=== PATIENT | male | born 1950 | race Caucasian/White ===

== ENCOUNTER 2016-07-02 03:42 | Observation (INO) | payer MEDICARE, OTHER ==
[~2016-07-02] VITALS: Ht 182.9 cm; Wt 111.4 kg
--- NOTE | ~2016-07-02 | ER ---
PATIENT'S NAME: MEGAN JOHNSON [facility] AGE: 65 Y [address] ROOM: [facility] [place] [place], [place] [address] LOCATION: GPCU ADMIT DATE: 07/02/2016 ER/Outpatient Report DISCHARGE DATE: FAMILY PHYSICIAN: Dakotah Alamo MD ATTENDING PHYSICIAN: Nacho Su Time of Arrival: 0342 hours. Time Seen: 0351 hours. IDENTIFICATION: A 65-year-old male. CHIEF COMPLAINT: Shortness of breath. HISTORY OF PRESENT ILLNESS: The patient is a 65-year-old male who had surgery on his foot by the environmental aid in [place] one week ago. He then had an infection and was placed on Bactrim last Monday, had a rash and allergic reaction secondary to that, went back to the hospital, got readmitted on Monday with shortness of breath and rash. Received Rocephin and Levaquin IV as well as IV Solu- Medrol and was discharged on Monday with a Medrol Dosepak which he has only taken a few tablets out of that. He was receiving Lovenox injections while in the hospital but was very sedentary during that time. Tonight, he woke up with chills, shortness of breath, bloated, and weakness. No chest pain. No history of cardiac problems other than he said he had an enlarged heart when he was younger. He states he did have an echo a few years ago with Dr. Hoover. ALLERGIES: TO BACTRIM AND PENICILLIN. CURRENT MEDICATIONS: 1. Cefdinir 300 mg b.i.d., filled but not started yet. 2. Fluconazole 100 mg daily, filled but not started yet, but he also did receive that in the hospital. 3. Medrol Dosepak. 4. Metformin 1000 mg b.i.d. 5. Meloxicam 15 mg daily. 6. Rabeprazole 20 mg daily. 7. Valsartan/hydrochlorothiazide 80/12.5 daily. 8. Levothyroxine 50 mcg daily. 9. Docusate 100 mg b.i.d.. 10. In the hospital, he also received Rocephin, Lovenox, Solu-Medrol, and Levaquin. PATIENT'S NAME: MEGAN JOHNSON [facility] AGE: 65 Y [address] ROOM: [address] [place], [place] [address] [facility] ADMIT DATE: 07/02/2016 ER/Outpatient Report DISCHARGE DATE: FAMILY PHYSICIAN: Dakotah Alamo MD ATTENDING PHYSICIAN: Nacho Su MEDICAL PROBLEMS: Diabetes mellitus, hypertension, hyperlipidemia, acute kidney injury, gout. PRIOR SURGERIES: Right foot surgery. SOCIAL HISTORY: The patient is . Lives in [place], is a self-employed hayden. Tobacco use, he chews tobacco. Alcohol use, rare. Drug use, denies. REVIEW OF SYSTEMS: All systems reviewed and negative other than what is noted in the HPI. PHYSICAL EXAMINATION: VITAL SIGNS: Height 6 feet 0 inches, weight 112.6 kilograms, blood pressure 162/83, pulse 84, respirations 20, temp 100, sats 96% on room air. GENERAL: A 65-year-old male in no acute distress. HEENT: Head; normocephalic, atraumatic. Ears; TMs translucent, both ears. Eyes; pupils equal and reactive to light and accommodation. Extraocular movements intact. Nose, mucosa pink. No lesions or drainage. Mouth, no lesions. Pharynx benign. NECK: Supple. No lymphadenopathy. LUNGS: Clear to auscultation. Breath sounds are equal. HEART: Regular rate and rhythm. No murmur, rub, or gallop. ABDOMEN: Bowel sounds present. Soft, nondistended. No hepatosplenomegaly. No palpable masses. Nontender. SKIN: Diffuse erythematous rash which he says is improving. Incision over his right great toe dehisced, but no surrounding erythema or drainage. EXTREMITIES: No calf tenderness. Negative Homans. NEUROLOGIC: The patient is alert and oriented x4. Cranial nerves 2 through 12 grossly intact. Motor strength 5/5 throughout. Sensation is intact to light touch. LABORATORY DATA AND X-RAYS: EKG; sinus rhythm at 75 beats per minute, no acute ST elevation or depression, nonspecific ST-T wave changes. Hemoglobin 12.2, hematocrit 36.2, platelets 179. White count 12.4, 83% segs, 3% bands. INR 1.02. Sodium 139, potassium 4.5, chloride 111, CO2 of 17, BUN 27, creatinine 1.8, blood sugar 138, creatinine was 3.1 on 06/30/2016. Liver enzymes elevated; AST 64, ALT 111. Procalcitonin 0.16. Lactate 2.0. D-dimer 1.32. V/Q scan has been ordered but unable to be performed until later this morning. ProBNP elevated at 5592. Some records were obtained from [facility] and those have been reviewed to include medications that were received in the hospital and labs that were reported on 06/30/2016. PATIENT'S NAME: MEGAN JOHNSON [facility] AGE: 65 Y [address] ROOM: [place] [address] LOCATION: GPCU ADMIT DATE: 07/02/2016 ER/Outpatient Report DISCHARGE DATE: FAMILY PHYSICIAN: Dakotah Alamo MD ATTENDING PHYSICIAN: Nacho Su IMPRESSION AND PLAN: 1. Shortness of breath and elevated D-dimer. Plan for heparin per acute DVT/PE protocol and admission per Dr. Su for Dr. Alamo. The patient has a V/Q scan ordered for later today. 2. Wound dehiscence, status post toe surgery. 3. Elevated proBNP. The patient had an echo in 2005 showing hypertrophic cardiomyopathy, systolic function was normal at that time, impairment of LV relaxation. The patient had a stress test that was abnormal in 2012 followed by a heart catheterization which was a false positive test, mild irregularities. 4. Hypertension. 5. Hyperlipidemia. 6. Diabetes. 7. Chewing tobacco abuse. Admit to PCU observation per Dr. Su. CLEO AVILES MD CAR/modl /[id number] d: 07/02/16638 t: 07/02/161911, OUTPATIENT REPORT
--- NOTE | ~2016-07-02 | CON ---
PATIENT'S NAME: MEGAN JOHNSON [facility] AGE: 65 Y [address] ROOM: [address] [place], [place] [address] LOCATION: GPCU ADMIT DATE: 07/02/2016 Consultation DISCHARGE DATE: FAMILY PHYSICIAN: Dakotah Alamo MD ATTENDING PHYSICIAN: Nacho Su REFERRING PHYSICIAN: Maricruz Shine MD Patient of Dr. Alamo. Dear Dr. Alamo: Thank you for asking me to see Mr. Johnson, who is a 65-year-old male patient admitted from [place] with shortness of breath. His proBNP was elevated at 5000 or greater, and I am being asked in consultation. He seemed to have ruled out for IN. His echo has been done and has not been read yet. We will try to get some sort of a stress test tomorrow for him. The patient had a similar episode about a year ago and for one month, he had lot of bloating in his upper abdomen along with swelling with bloating pushing on his heart making him short of breath and spontaneously resolved after a month. Now, he is short of breath and also somewhat off balance without any chest pain. He underwent tophus surgery 16 days ago and it got infected. Nine days back, he was placed on Bactrim which caused hives, shortness of breath, and his BP was somewhat low. He was hospitalized, and his proBNP was known to be elevated. He is here for followup of the elevated BNP and his heart failure. He has been in functional class II with no paroxysmal nocturnal dyspnea or orthopnea. He has been lightheaded for 3 days and today it has been much better. There is no history of palpitations or ankle swelling. MEDICATIONS: 1. Omnicef 300 mg every 12 hours. 2. Fluconazole 100 mg daily. 3. Methylprednisone 4 mg one dose as directed. 4. AcipHex 20 mg once a day. 5. Hydrocodone acetaminophen 1-2 every 4 hours p.r.n. 6. Meloxicam 15 mg a day. 7. Levothyroxine 50 mcg a day. 8. Docusate sodium. 9. [place]-3. 10. Aspirin 81 mg once a day. 11. Simvastatin 40 mg a day. 12. Valsartan hydrochlorothiazide 1 tablet every day. ALLERGIES: SULFAMETHOXAZOLE, TRIMETHOPRIM, CODEINE, GLUTEN, AND WHEAT. PATIENT'S NAME: MEGAN JOHNSON [facility] AGE: 65 Y [address] ROOM: [place] [address] LOCATION: GPCU ADMIT DATE: 07/02/2016 Consultation DISCHARGE DATE: FAMILY PHYSICIAN: Dakotah Alamo MD ATTENDING PHYSICIAN: Nacho Su PAST MEDICAL HISTORY: 1. Left foot surgery. 2. History of teeth extraction. SOCIAL HISTORY: The patient is a retired hayden. He is . He denies abusing alcohol, recreation is mild. His appetite is down by 7 days. His weight is down. Sleep is poor. FAMILY HISTORY: Father had IN at the age of 50 and also enlarged heart in 1970. REVIEW OF SYSTEMS: 12-point review of systems reveals: 1. Headaches. 2. Left-sided neck pain. 3. Corrective lenses. 4. Hypothyroidism. 5. Hiatal hernia. 6. Weak kidneys. 7. DJD. 8. Depression. 9. CKD. PHYSICAL EXAMINATION: VITAL SIGNS: On examination, his blood pressure is 130/80, heart rate is in the 80s and regular, respiration is 18, afebrile. HEENT: Normal. NECK: Supple. There is no JVD thyromegaly, lymphadenopathy, or carotid bruit. HEART: PMI is not well located. First and second heart sounds are regular. He does have a grade 4 systolic murmur best heard in the right upper sternal edge. ASSESSMENT: The patient has history of: 1. Type 2 diabetes and elevated cholesterol along with history of smoking at the age of 17. 2. Family history of premature coronary artery disease. 3. Shortness of breath and elevated proBNP. PLAN: His echo has been done. I will evaluate his echo and if that is negative, we will try to do a dobutamine echocardiogram in the morning. PATIENT'S NAME: MEGAN JOHNSON [facility] AGE: 65 Y [address] ROOM: [place] [address] LOCATION: GPCU ADMIT DATE: 07/02/2016 Consultation DISCHARGE DATE: FAMILY PHYSICIAN: Dakotah Alamo MD ATTENDING PHYSICIAN: Nacho Su Again, I appreciate this opportunity to participate in the care of Mr. Johnson. MD MARTINEZ CORONA/bertha /[id number] d: 07/02/16 2333 t: 07/05/16 1453, CONSULTATION REPORT
--- NOTE | ~2016-07-02 | ECHO ---
Stress Echocardiography Report Demographics Patient Name MEGAN JOHNSON Date of Study 07/03/2016 Patient Number [id number] Visit Number [id number] Date of 1950 Room Number G6335 Accession Number [id number] Gender Male Age 65 year(s) Referring Fátima Alcantara Psychiatric Tech Camila Doan RVT, Physician MD ARVIZUCS Physician Interpreting [facility] Director Physician Fátima Alcantara MD Supervising Fátima Alcantara Ordering Fátima FRANCO/LILLI FRANCO Physician Maricruz FRANCO Nurse Tyshawn Cartagena RN Stress Wet Sander The procedure was explained in detail to the patient. Risks, complications and alternative treatments were reviewed. Written consent was obtained. Medications Reviewed with Patient prior to Procedure. Conclusions Summary This is a Dobutamine Echo. Patient reached 92% MPHR without atropine. BP came down with Dobutamine. DP:23 K. No chest pain. Noted palpitation. No EKG changes of ischemia. One three beat run of PVCs. ECHO: No inducible ischemia. LV cavity did decrease in dimension with dobutamine appropriately. Procedure Type of Study Stress procedure:Pharm Stress Echo w/o Contrast. Procedure Date Date: 07/03/2016 Start: 12:00 AM Study Location: Echo Lab Technical Quality: Good visualization Indications:Shortness of breath. Appropriate Use Criteria: 8 Patient Status: Routine Rhythm: NSR HR: 60 bpm BP: 187/90 mmHg Allergies - Other:(codeine, captopril, gluten, wheat). Risk Factors - The patient's risk factor(s) include: orally-treated diabetes mellitus, treated dyslipidemia, lack of physical activity and treated arterial hypertension. Rest Resting HR:60 bpmResting BP:187/90 mmHg Stress Stress Type: Pharmacologic Predicted HR: 155 bpm Contractility Score Rest LV regional wall motion:(0-Non visualized 1-Normal 2-Hypokinesis 3-Akinesis 4-Dyskinesis 5-Aneurysm) Signature dtt: Maricruz Shine dtd: 07/03/16 0000 Physician Self Edit
--- NOTE | ~2016-07-02 | ECHO ---
Transthoracic Echocardiography Report (TTE) Demographics Patient Name MEGAN JOHNSON Date of Study 07/02/2016 Patient Number [id number] Visit Number [id number] Date of 1950 Room Number G6335 Gender Male Number Age 65 year(s) Referring Sharlene Reese Director Of Coding Camila Doan RVT, Physician RD Physician Interpreting Fátima Alcantara Electronics Recycler Physician Supervising Ordering Jasmeet Reese MD, MD/MLP Physician Nurse Stress Design Assistant Conclusions Contractility Score Summary Normal Left Ventricular contractility was noted. Summary The estimated left ventricular ejection fraction is 60% with normal WM. Mild to moderate concentric left ventricular hypertrophy with normal internal dimensions. The left atrium is mildly dilated. Trace MR. Mild aortic sclerosis. Procedure Type of Study TTE procedure:2D Echocardiogram. Procedure Date Date: 07/02/2016 Start: 01:42 PM Study Location: Inpatient Portable Technical Quality: Adequate visualization Indications:Shortness of breath. Appropriate Use Criteria: 8 Patient Status: Routine Rhythm: NSR HR: 69 bpm BP: 151/84 mmHg Allergies - Other:(codeine, captopril, gluten, wheat). M-Mode/2D Measurements LV Diastolic Dimension: 4.92 cm LV Systolic Dimension: 3.28 cm LV Septum Diastolic: 1.63 cm LV PW Diastolic: 1.34 cm AO Root Dimension: 2.3 cm Cardiac Output: 7 l/min LA Dimension: 4.1 cm EF Estimated: 60 % LVOT: 2 cm LVOT VTI: 32.3 cm RV Base: 3.17 cm LV Stroke volume: 101.42 ml RV Length: 8.88 cm TAPSE: 3.58 cm TDI-S': 16.7 cm/s Doppler Measurements AV Peak Velocity: 1.42 m/s MV Peak E-Wave: 0.87 m/s AV Peak Gradient: 8.07 mmHg MV Peak A-Wave: 1.08 m/s AV Mean Gradient: 7 mmHg MV E/A Ratio: 0.81 LVOT Peak Velocity: 1.44 m/s MV P1/2t: 72 msec TR Gradient:19.54 mmHg PV Peak Velocity: 1.6 m/s Estimated RAP:5 mmHg PV Peak Gradient: 10.24 mmHg Estimated RVSP: 25 mmHg Estimated PASP: 24.54 mmHg E' Septal Velocity: 0.06 m/s A' Septal Velocity: 0.13 m/s E' Lateral Velocity: 0.1 m/s A' Lateral Velocity: 0.13 m/s Findings Left Ventricle Mild to moderate concentric left ventricular hypertrophy with normal internal dimensions,EF and WM. Right Ventricle Normal right ventricle structure and function. Left Atrium The left atrium is mildly dilated. IAS persistently deviated to the right consistent with increased RA pressures. There is no evidence of patent foramen ovale or atrial septal defect by color Doppler. Right Atrium Normal right atrial size. Mitral Valve Normal mitral valve structure and function. Trivial mitral regurgitation by color Doppler. Aortic Valve The aortic valve is mildly sclerotic. Tricuspid Valve Normal tricuspid valve structure and function. Pulmonic Valve Normal pulmonic valve structure and function. Pericardial Effusion No evidence of pericardial effusion. Miscellaneous Visualized portions of the aortic root and ascending aorta appear normal in size. Pleural Effusion No evidence of pleural effusion. Contractility Score LV regional wall motion:(0-Non visualized 1-Normal 2-Hypokinesis 3-Akinesis 4-Dyskinesis 5-Aneurysm) Signature dtt: Maricruz Shine dtd: 07/02/16 4052 Physician Self Edit
--- NOTE | ~2016-07-02 | HP ---
PATIENT'S NAME: MEGAN JOHNSON [facility] AGE: 65 Y [address] ROOM: [address] [place], [place] [address] LOCATION: GPCU ADMIT DATE: 07/02/2016 History & Physical DISCHARGE DATE: FAMILY PHYSICIAN: Larisa Alamo MD ATTENDING PHYSICIAN: Nacho Su DATE OF SERVICE: CHIEF COMPLAINT: Significant shortness of breath. 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 I saw him for preoperative H and P on 06/13 and he subsequently underwent surgery on 06/15. He ended up getting readmitted to [facility] with dehiscence of that wound with a secondary infection. He apparently had an allergy to Bactrim while he was there, was placed on IV Levaquin and Rocephin and subsequently he was discharged. On Monday of this week, he started getting a little bit of shortness of breath with exertion that got profoundly worse last night to the point where he could only walk about 10 feet without having shortness of breath. He has no prior history of DVT or PE. He has no prior history of heart failure with an EF of 59% on a stress test in 2012. At that time, he did have a positive stress test involving the inferior wall, but his heart catheterization showed nonobstructive coronary artery disease with mild luminal irregularities. He is still currently not hypoxic, but gets dramatically worse with shortness of breath with laying down. PAST MEDICAL HISTORY: Significant for nicotine dependence in the form of chewing tobacco, morbid obesity with a BMI of 38, history of diverticulosis, duodenitis without bleeding in 2009 seen by EGD, history of GERD, hyperlipidemia, hypertensive kidney disease with CKD stage 3, hypertriglyceridemia, hypertrophic cardiomyopathy, hyperthyroidism, osteoarthritis in the knees bilaterally, steatosis of the liver, and type 2 diabetes mellitus. His most recent A1c was decently controlled at 6.7%. CHRONIC MEDICATIONS: 1. Allopurinol 300 mg daily. 2. Aspirin 81 mg once a day. 3. Levothyroxine 50 mcg daily. 4. Meloxicam 50 mg one a day. 5. Metformin 1000 mg b.i.d. 6. Rabeprazole 20 mg once a day. 7. Simvastatin 40 mg once a day. PATIENT'S NAME: MEGAN JOHNSON [facility] AGE: 65 Y [address] ROOM: [address] [place], [place] [address] [facility] ADMIT DATE: 07/02/2016 History & Physical DISCHARGE DATE: FAMILY PHYSICIAN: Larisa Alamo MD ATTENDING PHYSICIAN: Nacho Su 8. Valsartan/hydrochlorothiazide 80/12.5 one a day. ALLERGIES: BACTRIM AND PENICILLIN. PRIOR SURGICAL HISTORY: He had a colonoscopy in 2009, an EGD in 2009, and then his recent foot surgery. SOCIAL HISTORY: He uses alcohol on a light basis. Drinks caffeine every day. He chews tobacco every day. He is and his accompanies him. REVIEW OF SYSTEMS: Denies any chest pain. He does have the shortness of breath as outlined above. He does still have dyspnea on exertion as well. He has no melena, hematochezia, or bright blood per rectum. No dysuria, frequency, or urgency. All other review of systems are negative. Full 12-point review of systems was obtained. PHYSICAL EXAMINATION: GENERAL: The patient is nontoxic appearing male, in no acute distress. HEENT: Normocephalic and atraumatic. Ears: TMs are clear and intact bilaterally. Nose is patent. Throat clear. NECK: Supple without lymphadenopathy, JVD, thyromegaly, or bruits. HEART: Regular rate and rhythm with audible grade 2/6 systolic murmur heard throughout. LUNGS: Clear to auscultation bilaterally without wheezes, rhonchi, or rales. ABDOMEN: Soft, nontender, nondistended. Bowel sounds are positive. There is no hepatosplenomegaly, no guarding, no rebound. EXTREMITIES: He has manifestations of his recent surgery on his left foot. His right, he does have some mild edema, but certainly is not pitting at this point. His Homans sign is negative bilaterally. NEUROLOGICAL: He is focally intact. LABORATORY DATA: His white cell count is 12.4, hemoglobin 12.2, hematocrit 36.2%, platelet count 179,000. Sodium 139, potassium 4.5, chloride 111, CO2 is 17, BUN 27, creatinine 1.8, and glucose 138. This compares to labs, his BUN is 16, creatinine 1.3 with a GFR of 59 going into surgery. His PT is 10.7, INR is 1.02, PTT is 23. His proBNP is elevated at 5592 with no baseline for comparison. His D-dimer is elevated at 1.32 and his procalcitonin level is 0.16. ASSESSMENT AND PLAN: PATIENT'S NAME: MEGAN JOHNSON [facility] AGE: 65 Y [address] ROOM: [id number] [place] [id number] LOCATION: GPCU ADMIT DATE: 07/02/2016 History & Physical DISCHARGE DATE: FAMILY PHYSICIAN: Larisa Alamo MD ATTENDING PHYSICIAN: Nacho Su A 65-year-old white male with the following problem list: 1. New-onset shortness of breath and dyspnea on exertion. Clearly, our biggest thing to worry about here is pulmonary embolism. I really do not want to give him contrast with his history of chronic kidney disease stage 3, with acute on chronic renal failure, so we will go ahead and do a V/Q scan, and make further recommendations pending the outcome of that. Certainly, his elevated BNP may be playing a role in this as well. 2. Elevated BNP without evidence of heart failure. We will get an echo. His last echo showed EF greater than 55% with some LVH and grade 1 diastolic dysfunction. We will see if that significantly changed. We will go ahead and trend out enzymes as well. We will check CPK and troponin during those times as well. He is currently on heparin per protocol. 3. Type 2 diabetes mellitus with an A1c of 6.7%. Continue with his metformin for now. Obviously, he needs to watch his kidney function closely with that. 4. History of hyperlipidemia with his last check. This was well controlled with LDL of 53 with him being on a statin. 5. Nicotine dependence in the form of chewing tobacco. I did offer nicotine replacement, which he will do. He states he will not chew while he is in the hospital. 6. Acute on chronic renal failure with chronic kidney disease stage 3. His creatinine is 1.8, now with a baseline of 1.3. We will give him some gentle hydration at 75 mL an hour. Obviously, being careful to watch for any volume overload. He currently looks like he is euvolemic at this point according to his exam. 7. Idiopathic chronic gout, overall stable. 8. Morbid obesity. Encouraged weight loss. Further recommendations on the outcome of the V/Q scan and the echo. He voiced understanding of the plan as does his . LARISA ALAMO MD TAB/modl /[id number] D: [id number] T: [id number] HISTORY & PHYSICAL
[2016-07-02 04:19] LABS: HEMATOCRIT 36.2 % (37.0-53.0); HEMOGLOBIN 12.2 g/dL (11.0-16.0); MCH 30.3 pg (27.0-34.0); MCHC 33.7 gm/dL (32.0-36.5); MCV 89.8 fl (83.0-98.0); MPV 10.3 fl (9.4-12.4); PLATELET COUNT 179 K/uL (150-450); RBC 4.03 M/uL (3.50-5.50); RDW-CV 13.2 % (11.9-14.6); WBC 12.4 K/uL (4.0-11.0)
[2016-07-02 04:26] LABS: INR - (THERAPEUTIC) 1.02 (0.92-1.07); PROTIME 10.7 SECONDS (9.8-11.4); PTT 23 SECONDS (25-32)
[2016-07-02 04:40] LABS: ALBUMIN 3.4 gm/dL (3.5-5.0); ANION GAP 15.5 (10.0-19.0); CALCIUM 8.4 mg/dL (8.5-10.5); CREATININE 1.8 mg/dL (0.6-1.3); POTASSIUM 4.5 mMol/L (3.7-5.1); TOTAL BILIRUBIN 0.4 mg/dL (0.0-1.5)
[2016-07-02 04:45] LABS: ABSOLUTE NEUTROPHIL CT (ANC) 10.7 K/uL (1.4-9.0); BANDED NEUTROPHIL # 0.4 K/uL (0.0-0.1); BANDED NEUTROPHILS % 3 %; LYMPHOCYTE # 0.6 K/uL (0.8-4.0); LYMPHOCYTE % 5 %; MONOCYTE # 0.6 K/uL (0.0-1.0); SEGMENTED NEUTROPHIL # 10.3 K/uL (1.4-9.0); SEGMENTED NEUTROPHIL % 83 %
[2016-07-02 07:43] LABS: CPK 91 IU/L (35-332)
[2016-07-02] MEDS ORDERED: OMNICEF 300MG300 MG PO (08:25)
[2016-07-02] MEDS ORDERED: DIFLUCAN100 MG PO (08:26)
[2016-07-02] MEDS ORDERED: ACIPHEX20 MG PO (08:27)
[2016-07-02] MEDS ORDERED: MEDROL4 M1 PO (08:27)
[2016-07-02] MEDS ORDERED: HYDROCODON-ACE1 EAC4 PO (08:28)
[2016-07-02] MEDS ORDERED: MOBIC15 MG PO (08:29)
[2016-07-02] MEDS ORDERED: LEVOTHROID (SY50 MCG PO (08:29)
[2016-07-02] MEDS ORDERED: COLACE100 MG PO (08:29)
[2016-07-02] MEDS ORDERED: FISH OIL 1,0001 EAC5 PO (08:30)
[2016-07-02] MEDS ORDERED: ASPIRIN LO-DOSE81 MG PO (08:30)
[2016-07-02] MEDS ORDERED: GLUCOPHAGE1000 MG PO (08:30)
[2016-07-02] MEDS ORDERED: ZOCOR40 MG PO (08:30)
[2016-07-02] MEDS ORDERED: VALSARTAN-HCTZ1 EAC4 PO (08:35)
--- NOTE | 2016-07-02 08:46 | NUR ---
Admission Note: Patient had surgery on 06/15/16 "for gout" he reports, and the incision dehisced. Started feeling more short of breath on Monday and went to the [facility] ED. Patient has been hospitalized there, recieving IV antibiotics and was discharged yesterday. States he was given Bactrim there and broke out in hives and then was given a dose of IV antibiotics yesterday and went home later and felt short of breath, so he came to the [facility] ED. Noted elevated D-dimer, procalcitonin, WBC, pro-BNP, and impaired renal function. Patient admitted to PCU at approximately 0600. Vital signs: temperature 97.7 F, HR 77, O2 saturation 95% on room air, RR 24, BP 153/76, and denies pain. States he remains short of breath, and he feels weak and unsteady of his feet. Left top of foot surgical wound dehisced. White wound bed. No drainage noted. Replaced dressing. Reports burning at the bottom of his feet. Evin skin throughout body and states itching was a problem, but is now improving. Denies any other symptoms. Hx of HTN, DM 2, gout. Laureen SALAZAR 07/02/16
[2016-07-02 12:02] LABS: CPK 73 IU/L (35-332)
--- NOTE | 2016-07-02 15:39 | NUR ---
Significant Event: Patient A/O x 3. Up with minimal assist. VSS on RA. Denies pain. Reports SOB with activity. V/Q scan today negative so heparin gtt shut off. Cardiology consulted for elevated pro-BNP. Echo done. Still awaiting consult. L)foot dehisced surgical site with small amount of shadow drainage on dressing. Continued on Rocephin IV for infection. RAC PIV with NS infusing at 75 ml/hr. ACHS accu checks. Denies any other needs throughout the day. Follow up: Continue as per plan of care. Monitor SOB and wound. Cardiology to see.
[2016-07-02 16:58] LABS: CPK 146 IU/L (35-332)
[2016-07-02 22:13] LABS: CPK 97 IU/L (35-332)
--- NOTE | 2016-07-03 04:34 | NUR ---
Significant Event: VSS.RA.PT DENIES CHEST PAIN. PT UP AD BHUPINDER.WOUND TO L FOOT IS INTACT, DRIED DRAINAGE. NPO AFTER MIDNIGHT.NS RUNNING @ 75ML/HR. Follow up: ECHO, CONT TO MONITOR, IV ABX
[2016-07-03 06:39] LABS: HEMATOCRIT 32.6 % (37.0-53.0); HEMOGLOBIN 11.2 g/dL (11.0-16.0); MCH 30.6 pg (27.0-34.0); MCHC 34.4 gm/dL (32.0-36.5); MCV 89.1 fl (83.0-98.0); MPV 10.1 fl (9.4-12.4); PLATELET COUNT 191 K/uL (150-450); RBC 3.66 M/uL (3.50-5.50); RDW-CV 13.2 % (11.9-14.6); WBC 8.4 K/uL (4.0-11.0)
[2016-07-03 06:54] LABS: ANION GAP 12.4 (10.0-19.0); CALCIUM 8.1 mg/dL (8.5-10.5); CREATININE 1.3 mg/dL (0.6-1.3); POTASSIUM 4.4 mMol/L (3.7-5.1)
[2016-07-03 07:20] LABS: ABSOLUTE NEUTROPHIL CT (ANC) 6.3 K/uL (1.4-9.0); BANDED NEUTROPHIL # 0.5 K/uL (0.0-0.1); BANDED NEUTROPHILS % 6 %; LYMPHOCYTE # 1.7 K/uL (0.8-4.0); LYMPHOCYTE % 20 %; MONOCYTE # 0.3 K/uL (0.0-1.0); SEGMENTED NEUTROPHIL # 5.8 K/uL (1.4-9.0); SEGMENTED NEUTROPHIL % 69 %
[2016-07-03] MEDS ORDERED: NICOTINE PATCH1 EAC4 TRANS (16:28)
--- NOTE | 2016-07-03 17:03 | NUR ---
Discharge Summary: Patient A/O x 3. Up independently. Vital signs stable: 97.7F, HR 61, RR 18, BP 130/73, O2 saturation 95% on RA, and denies pain. Denies shortness of breath. Dressing to left foot C/D/I. Discharge instrutions included: new medications/medication changes, following up with Dr. Shine and Dr. Alamo, and signs/symptoms to be alert for. Patient and verbalize understanding of all instructions. Left PCU at 1655 to [facility] entrance and then home to self care with . No other needs at time of discharge. Monitor and IV discontinued. Laureen RN 07/03/16
== END 2016-07-03 16:55 | disposition disaster alternative care site (69) ==
LOC: GMED 03:42 → GPCU 05:28
PROVIDERS: Family Medicine; ADMIT Obstetrics & Gynecology Obstetrics
DX: R06.02 Shortness of breath (principal); T81.30XA Disruption of wound, unspecified, initial encounter; I12.9 Hypertensive chronic kidney disease with stage 1 through stage 4 chronic kidney disease, or unspecified chronic kidney disease; E11.22 Type 2 diabetes mellitus with diabetic chronic kidney disease; N18.3 Chronic kidney disease, stage 3 (moderate); R79.89 Other specified abnormal findings of blood chemistry; E78.1 Pure hyperglyceridemia; I42.2 Other hypertrophic cardiomyopathy; E05.80 Other thyrotoxicosis without thyrotoxic crisis or storm; M17.0 Bilateral primary osteoarthritis of knee; R06.09 Other forms of dyspnea; F17.220 Nicotine dependence, chewing tobacco, uncomplicated; E66.01 Morbid (severe) obesity due to excess calories; Z68.38 Body mass index [BMI] 38.0-38.9, adult; Z88.0 Allergy status to penicillin; Z88.2 Allergy status to sulfonamides; Z98.890 Other specified postprocedural states; Z79.82 Long term (current) use of aspirin; Z79.84 Long term (current) use of oral hypoglycemic drugs; Z79.899 Other long term (current) drug therapy
CPT/HCPCS: A9539; A9540; G0378; J0461; J0696; J1250; J1644; J1956; J7030; J7512; Q9957

== ENCOUNTER → 2016-10-31 | Outpatient (CLI) | payer MEDICARE, OTHER ==
[~2016-10-31] MED LIST: ACIPHEX20 MG PO; ASPIRIN LO-DOSE81 MG PO; COLACE100 MG PO; DIFLUCAN100 MG PO; FISH OIL 1,0001 EAC5 PO; GLUCOPHAGE1000 MG PO; HYDROCODON-ACE1 EAC4 PO; LEVOTHROID (SY50 MCG PO; MEDROL4 M1 PO; MOBIC15 MG PO; NICOTINE PATCH1 EAC4 TRANS; OMNICEF 300MG300 MG PO; VALSARTAN-HCTZ1 EAC4 PO; ZOCOR40 MG PO
[2016-10-31 09:46] LABS: ALBUMIN 3.9 gm/dL (3.5-5.0); TOTAL BILIRUBIN 0.5 mg/dL (0.0-1.5); TOTAL PROTEIN 7.4 g/dL (6.0-8.4)
[2016-10-31 10:45] LABS: ANION GAP 15.2 (10.0-19.0); CALCIUM 9.3 mg/dL (8.5-10.5); CREATININE 1.4 mg/dL (0.6-1.3); POTASSIUM 4.2 mMol/L (3.7-5.1)
== END ==
LOC: LGSOS 09:26
PROVIDERS: Internal Medicine Interventional Cardiology
DX: E78.2 Mixed hyperlipidemia (principal)